=== PATIENT | male | born 1995 | race Caucasian/White ===

== ENCOUNTER 2017-05-04 16:16 | Emergency (ER) | payer BC ==
[~2017-05-04] VITALS: Ht 180.3 cm; Wt 100.0 kg
[2017-05-04 16:19] VITALS: BP 174/103; PULSE 79; TEMP 36.9; O2SAT 97; Ht 180.3 cm; Wt 100.0 kg
--- NOTE | 2017-05-04 17:24 | DIAGNOSTIC IMAGING REPORT ---
HEAD WITHOUT CONTRAST (CT) CLINICAL HISTORY: 21 years-old Male presenting with head injury, abnormal right pupillary response to light. TECHNIQUE: Multidetector CT imaging of the head was performed without the use of intravenous contrast. IV contrast: None. A dose lowering technique was used consistent with the principles of ALARA (as low as reasonably achievable). COMPARISON: None. CT DOSE (mGy.cm): The estimated cumulative dose is 614.27 mGy.cm. FINDINGS: [employer] Teller topogram: Unremarkable. Ventricles and sulci normal in size. Brain parenchyma normal in appearance with preserved james-white differentiation. No mass effect or midline shift. No hemorrhage or acute territorial infarct. No extra-axial fluid collection. Paranasal sinuses and mastoid air cells clear. Calvarium intact. IMPRESSION: 1. No acute intracranial abnormality. Electronically signed by: Marlo Redman M.D. 05/04/2017 5:23 PM Dictated Date/Time: 05/04/2017 5:21 PM
--- NOTE | 2017-05-04 17:36 | EMERGENCY ROOM VISIT NOTE ---
ED Visit Note First contact with patient: 16:24 CHIEF COMPLAINT: Head injury HISTORY OF PRESENT ILLNESS: This 21-year-old male patient presented to the emergency department 3 days after receiving a head injury. The patient states on Wednesday, he was at a tailgate. He was walking back to his apartment from the game, when he tripped on a curb and hit his head on a temporary construction sign. The patient was intoxicated when the injury occurred, but his friends didn't witness the episode and he did not lose consciousness. The patient was at [employer] prior to being seen here. Apparently, he had an abnormal response to light of his right pupil. He was encouraged to come to the emergency department for further evaluation. There has been no vomiting. The patient complains of a mild headache which is been intermittent, but present since Wednesday. The patient denies confusion, blurry vision, other visual disturbances, memory lapses, decreased attentions pain, or other neurological symptoms. The patient complains of no neck pain. The patient has taken nothing for the pain. The patient rates the pain as 6/10 and intermittent. The patient denies bowel or bladder dysfunction. The patient denies any other injuries. REVIEW OF SYSTEMS: A 10 system review of systems was performed with positives and pertinent negatives listed in the history of present illness. All other systems were reviewed and are negative. ALLERGIES: None MEDICATIONS: Loratadine PMH: Seasonal allergies SOCIAL HISTORY: The patient lives locally with his remain. He denies drug, tobacco use. He does drink alcohol on occasion. PHYSICAL EXAM: Vital Signs: Reviewed Nurse's notes, vital signs stable. GENERAL : This is a 21-year-old white male, in no acute distress, well-developed, well- nourished. NEURO: The patient is alert, oriented to person place and time, and coherent. Normal mini mental status exam. Negative Romberg and pronator drift. Cerebellar function intact. HEAD: Normocephalic, atraumatic. EYES: Pupils are equal round and reactive to light and accommodation, however, the right pupil does dilate and constrict with prolonged light exposure. EOMs are full and optic discs and fundi are normal. There is no swelling or discoloration of the tissue surrounding the eyes. EARS: External auditory canals clear without blood. NOSE: Patent without tenderness. No septal hematoma. FACE: No facial bone tenderness. NECK: Supple. There is no cervical spine tenderness. The patient does not have tenderness with movement of the neck. RADIOLOGY: HEAD WITHOUT CONTRAST (CT) CLINICAL HISTORY: 21 years-old Male presenting with head injury, abnormal right pupillary response to light. TECHNIQUE: Multidetector CT imaging of the head was performed without the use of intravenous contrast. IV contrast: None. A dose lowering technique was used consistent with the principles of ALARA (as low as reasonably achievable). COMPARISON: None. CT DOSE (mGy.cm): The estimated cumulative dose is 614.27 mGy.cm. FINDINGS: [employer] topogram: Unremarkable. Ventricles and sulci normal in size. Brain parenchyma normal in appearance with preserved james-white differentiation. No mass effect or midline shift. No hemorrhage or acute territorial infarct. No extra-axial fluid collection. Paranasal sinuses and mastoid air cells clear. Calvarium intact. IMPRESSION: 1. No acute intracranial abnormality. Electronically signed by: Marlo Redman M.D. 05/04/2017 5:23 PM Dictated Date/Time: 05/04/2017 5:21 PM ED COURSE: I examined the patient. Due to abnormal pupillary response to light, I did elect to perform CT of the head to rule out intracranial injury. This was ordered and reviewed by myself and radiologist as negative. I discussed the findings with the patient. Discharge instructions were reviewed and the patient was discharged home in good condition ambulatory. I attest that I have personally reviewed the patient's current medication list. Patient was found to have normal blood pressure on screening and does not require follow-up. DIFFERENTIAL DIAGNOSIS: Concussion, closed head injury, intracranial hemorrhage , skull fracture, contusion, and others. DIAGNOSIS: Concussion Vital Signs Date Time Temp Pulse Resp B/P (MAP) Pulse Ox O2 Delivery O2 Flow Rate FiO2 05/04/17 16:19 36.9 79 16 174/103 97 Room Air Departure Information Impression Primary Impression: Concussion Dispostion Home / Self-Care Condition GOOD Referrals Robin Zamudio M.D. (PCP) Patient Instructions ED Concussion, My [facility] Additional Instructions You have been treated in the Emergency Department for a Closed Head Injury. CT Scan of your head/brain demonstrated no acute bleeding or other abnormalities. This does not completely rule out the risk for future damage to the brain. For pain control, you can use the following [id number] medicines (if >12 yo): Ibuprofen(Motrin, Advil) may be used for fever or pain. Use 600mg every six hours as needed. Take with food. Avoid using more than 2400mg in a 24 hour period. Do not use 2400mg per day for more than three consecutive days without physician direction. Prolonged inappropriate use can lead to stomach upset or ulcers. (AND/OR) Acetaminophen(Tylenol) may be used for fever or pain. Use 1000mg every six hours as needed. Avoid using more than 3000mg in a 24 hour period. You should relax in a quiet, dark place for the rest of the day. Avoid any possible triggers including: cigarette smoke, caffeine, nicotine, chocolate, wine, beer, loud noises or music, or bright lights. You should schedule a follow-up appointment in 2-3 days with your Primary Care Provider or established Neurologist for further evaluation and treatment of your Headache. You should follow-up with the concussion clinic. They are located at [address] [place] [address], [address]. You may call them to schedule an appointment at [phone]. There are open Wednesday to Wednesday from 8:30 AM to 5:00 PM. Return to the Emergency Department if your current symptoms worsen despite treatment course outlined above, or if you develop any of the following symptoms : intractable pain despite aforementioned treatment course, visual disturbances , loss of vision, unilateral weakness or facial drooping, slurring of speech, loss of coordination, or loss of consciousness. Problem Qualifiers Primary Impression: Concussion Encounter type: initial encounter Loss of consciousness presence/duration: without LOC Qualified Codes: S06.0X0A - Concussion without loss of consciousness, initial encounter
== END 2017-05-04 17:41 | disposition home or self-care (01) ==
LOC: C.EDB 16:19 → C.EDD 17:41
DX: S06.0X0A Concussion without loss of consciousness, initial encounter (principal); W18.49XA Other slipping, tripping and stumbling without falling, initial encounter; W22.09XA Striking against other stationary object, initial encounter; Y93.01 Activity, walking, marching and hiking; Y99.8 Other external cause status